=== PATIENT | female | born 1975 | race Two or more races ===

== ENCOUNTER 2020-12-26 14:53 | Emergency (ER) | payer BC ==
[~2020-12-26] VITALS: Ht 160 cm; Wt 91.0 kg
[2020-12-26 14:55] VITALS: BP 135/90
[2020-12-26 16:02] LABS: BASOPHILS % 0.2 % (0.0-2.0); EOSINOPHILS % 0.6 % (0.0-5.0); HEMOGLOBIN. 14.6 g/dL (12.0-16.0); LYMPHOCYTES % 17.6 % (20.0-50.0); MEAN CORPUSCULAR HEMOGLOBIN 29.4 pg (28.0-32.0); MEAN CORPUSCULAR VOLUME 88.3 fL (81.0-99.0); MEAN PLATELET VOLUME 8.8 fl (7.4-10.4); MONOCYTES % 8.5 % (2.0-8.0); NEUTROPHILS % 73.1 % (40.0-76.0); PLATELET 305 x1000/uL (130-400); RED BLOOD CELL COUNT 4.97 mill/uL (4.2-5.4); RED CELL DISTRIBUTION WIDTH 12.8 % (11.6-14.6)
[2020-12-26 16:08] LABS: CHLORIDE 102 mEq/L (98-107)
[2020-12-26] MEDS ORDERED: METF-414 MT (16:20)
== END 2020-12-26 16:35 | disposition home or self-care (01) ==
LOC: ER 14:53
DX: E11.65 Type 2 diabetes mellitus with hyperglycemia (principal); Z76.0 Encounter for issue of repeat prescription
CPT/HCPCS: 36415; 80053; 82962; 85025; 99283

== ENCOUNTER 2022-05-08 13:14 | Emergency (ER) | payer BC ==
[~2022-05-08] VITALS: Ht 160 cm; Wt 94.0 kg
[~2022-05-08 13:14] MED LIST: METF-414 MT
[2022-05-08] MEDS ORDERED: BACITRACIN ZINC OINT UDPKT TOP ONE (16:45)
[2022-05-08] MEDS ORDERED: LIDOCAINE HCL/PF 1% 10 MG/ML 5ML VIAL INFIL ONE (16:45)
[2022-05-08] MEDS ORDERED: ACETAMINOPHEN WITH CODEINE 300/30MG TABLET PO ONE (16:45)
[2022-05-08] MEDS ORDERED: CLIN-194 MT ×3 (17:31→17:47)
[2022-05-08 17:43] VITALS: BP 121/77
== END 2022-05-08 17:43 | disposition home or self-care (01) ==
LOC: ER 13:19
DX: L02.31 Cutaneous abscess of buttock (principal); E11.9 Type 2 diabetes mellitus without complications
CPT/HCPCS: 10060; 99283; J3490

== ENCOUNTER 2022-05-10 12:22 | Emergency (ER) | payer BC ==
[~2022-05-10] VITALS: Ht 160 cm; Wt 94.0 kg
[~2022-05-10 12:22] MED LIST changes: +CLIN-194 MT
[2022-05-10 12:41] VITALS: BP 161/86
== END 2022-05-10 14:50 | disposition home or self-care (01) ==
LOC: ER 12:22
DX: Z48.02 Encounter for removal of sutures (principal)
CPT/HCPCS: 99281